=== PATIENT | female | born 1940 | race Hispanic/Latino ===

== ENCOUNTER 2018-07-13 19:41 | Emergency (ER) | payer OTHER, MEDICAID ==
--- NOTE | 2018-07-13 20:43 | ED.PDOC ---
History of Present Illness - General Chief Complaint: Back Pain or Injury Stated Complaint: Chronic back and neck pain Time Seen by Provider: 07/13/18 20:13 Source: patient, family Exam Limitations: no limitations - History of Present Illness Initial Comments: CHRONIC NECK AND LBP X YEARS. HAS NEVER SEEN A PCP FOR IT. DOES NOT CURRENTLY HAVE A PCP. Timing/Duration: other - YEARS Quality/Severity: moderate, other - ACHY Back Pain Location: C-spine, lumbar spine Method of Injury/Prior Injury: other - NONE Improving Factors: nothing Worsening Factors: movement Associated Symptoms: lower back pain Allergies/Adverse Reactions: Allergies NO KNOWN ALLERGY Allergy (Verified 07/13/18 20:26) Home Medications: Ambulatory Orders Amlodipine Besylate 5 mg PO DAILY 07/13/18 Carvedilol 25 mg PO DAILY 07/13/18 Cyclobenzaprine HCl [Flexeril] 5 mg PO TID PRN #30 tab 07/13/18 Furosemide [Lasix] 40 mg PO DAILY 07/13/18 Hydralazine HCl 100 mg PO DAILY 07/13/18 Losartan Potassium & Hydrochlo [Hyzaar 100-12.5 mg] 1 tab PO DAILY 07/13/18 Methylprednisolone [Medrol Dose Dell] 4 mg PO DAILY #1 tab 07/13/18 Review of Systems - Review of Systems Constitutional: States: no symptoms reported EENTM: States: no symptoms reported Respiratory: States: no symptoms reported Cardiology: States: no symptoms reported Gastrointestinal/Abdominal: States: no symptoms reported Genitourinary: States: no symptoms reported Musculoskeletal: States: see HPI, back pain, joint pain, neck pain Skin: States: no symptoms reported Neurological: States: no symptoms reported. Denies: headache Endocrine: States: no symptoms reported Past Medical History (General) - Patient Medical History Hx Cardiac Disorders: Yes Hx Thyroid Disease: Yes Hx Diabetes: No Surgical History: appendectomy, cholecystectomy, pacemaker, Hysterectomy Family Medical History - Family History Father Family History: Unknown Physical Exam - Physical Exam General Appearance: Alert, Obese Eyes, Ears, Nose, Throat Exam: PERRL/EOMI, normal ENT inspection Neck Exam: non-tender, full range of motion Cardiovascular/Respiratory: regular rate, rhythm, no M/R/G Gastrointestinal/Abdominal: normal bowel sounds, non tender Back Exam: normal inspection, no CVA tenderness, no vertebral tenderness, decreased range of motion, other - NEG SLR. NEG LASHELL AND FADIR TESTS. 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 NO FRX. REFERED TO PCP, WHO CAN THEN REFER TO PAIN MGMT OR NEUROLOGY, DR. ZUNIGA. Departure - Departure Clinical Impression: Chronic neck pain, Degenerative disc disease, lumbar, Degenerative disc disease, cervical, Osteopenia determined by x-ray Lumbago Qualifiers: Chronicity: chronic Back pain laterality: bilateral Sciatica presence: unspecified whether sciatica present Qualified Code(s): M54.5 - Low back pain; G89.29 - Other chronic pain Disposition: Discharge to Home or Self Care Condition: Fair Departure Forms: ED Discharge - Pt. Copy, Patient Portal Self Enrollment Instructions: Chronic Neck Pain (DC), Degenerative Disc Disease (DC) Diet: resume usual diet Activity: increase activity as tolerated Referrals: Tequila Christy, [employer] [Nurse Practitioner] - 1-2 Weeks Prescriptions: Cyclobenzaprine HCl [Flexeril] 5 mg PO TID PRN #30 tab PRN Reason: Pain Methylprednisolone [Medrol Dose Dell] 4 mg PO DAILY #1 tab Home Medications: Ambulatory Orders Amlodipine Besylate 5 mg PO DAILY 07/13/18 Carvedilol 25 mg PO DAILY 07/13/18 Cyclobenzaprine HCl [Flexeril] 5 mg PO TID PRN #30 tab 07/13/18 Furosemide [Lasix] 40 mg PO DAILY 07/13/18 Hydralazine HCl 100 mg PO DAILY 07/13/18 Losartan Potassium & Hydrochlo [Hyzaar 100-12.5 mg] 1 tab PO DAILY 07/13/18 Methylprednisolone [Medrol Dose Dell] 4 mg PO DAILY #1 tab 07/13/18 Additional Instructions: Please call Chapis Christy's office to schedule an appointment for further care.
[2018-07-13] MEDS: methylPREDNISolone ACETATE 80 MG/ML VIAL IM ONE (20:48)
[2018-07-13] MEDS: KETOROLAC TROMETHAMINE INJ 30 MG/ML VIAL IM ONE (20:48)
--- NOTE | 2018-07-13 21:01 | RAD ---
EXAM: Cervical Spine, 2-3 Views CLINICAL INDICATION: Neck pain COMPARISON: There is no previous study for comparison. FINDINGS: 3 views of the cervical spine reveal mild disc space narrowing at C4-5 and C5-6 and C6-7. There is no fracture, subluxation, or prevertebral soft tissue swelling. IMPRESSION: Mild degenerative changes in the cervical spine. Electronically signed by: Sawyer Vera MD 07/13/2018 8:59 PM CDT
--- NOTE | 2018-07-13 21:02 | RAD ---
EXAM: Lumbar Spine 3 Views CLINICAL INDICATION: Low back pain COMPARISON: There is no previous study for comparison. FINDINGS: 3 views of the lumbar spine are limited by the patient's large body habitus. Diffuse osteopenia is noted. No fractures or compression deformities are seen. Mild multilevel degenerative disc disease is noted. IMPRESSION: Mild degenerative changes in the lumbar spine. Electronically signed by: Sawyer Vera MD 07/13/2018 9:00 PM CDT
[2018-07-13 22:23] VITALS: BP 111/59; O2SAT 98
[2018-07-13 22:38] VITALS: TEMP 97.9
== END 2018-07-13 22:30 | disposition home or self-care (01) ==
LOC: ER 19:41
DX: M51.36 Other intervertebral disc degeneration, lumbar region (principal); M50.323 Other cervical disc degeneration at C6-C7 level; G89.29 Other chronic pain; M85.80 Other specified disorders of bone density and structure, unspecified site; I51.9 Heart disease, unspecified; E07.9 Disorder of thyroid, unspecified; Z95.0 Presence of cardiac pacemaker
CPT/HCPCS: 72040; 72100; J1030; J1885